=== PATIENT | female | born 1985 | race Hispanic/Latino ===

== ENCOUNTER 2018-08-16 11:45 | Emergency (ER) | payer MEDICAID ==
[2018-08-16 12:14] VITALS: BMI 23.4
[2018-08-16 12:20] VITALS: RESP 18; TEMP 98.5
[2018-08-16] MEDS ORDERED: Sodium Chloride 0.9% 1,000 ML IV ONE (13:09)
[2018-08-16 13:42] LABS: HCG,QUALITATIVE URINE NEGATIVE (NEGATIVE)
[2018-08-16 13:49] LABS: SQUAMOUS EPITHIAL 5 /hpf (0-5); URINE BACTERIA OCC (<OCC); URINE BILIRUBIN NEGATIVE (NEGATIVE); URINE BLOOD 3+ (NEGATIVE); URINE CLARITY Hazy (Clear); URINE COLOR Yellow (YELLOW); URINE GLUCOSE (UA) NORMAL (Normal); URINE LEUKOCYTE ESTERASE 1+ Leu/uL (Negative); URINE PROTEIN 2+ mg/dL (NEGATIVE); URINE UROBILINOGEN NORMAL mg/dL (0.2-1.0)
[2018-08-16] MEDS ORDERED: cefTRIAXone IV 1 gm in Dextros 50 ML IV ONE (13:57)
[2018-08-16] MEDS ORDERED: Sodium Chloride 0.9% 1,000 ML ONE (14:31)
--- NOTE | 2018-08-16 14:45 | US ---
HISTORY: RUQ abd pain and pelvic COMPARISON: None available. TECHNIQUE: Sonographic evaluation of the abdomen. FINDINGS: LIVER: Measures 16.1 cm in sagittal dimension. Echogenic liver may be seen in setting of hepatic parenchymal disease or fatty infiltration. 0.7 x 0.7 x 0.8 cm and 0.6 x 0.5 x 0.6 cm echogenic right hepatic lesions. The main portal vein appears patent with normal directional flow. No intrahepatic bile duct dilatation. GALLBLADDER: Cholelithiasis. No gallbladder wall thickening. Negative sonographic Virgen's sign as assessed by the sandwich board carrier. COMMON BILE DUCT: Measures 5 mm. PANCREAS: Not well visualized. RIGHT KIDNEY: Measures 10.4 x 4.1 x 4.4 cm. Mild hydronephrosis. 0.8 cm calculus. LEFT KIDNEY: Measures 10.4 x 5.4 x 5.3 cm. No obstructing calculus or hydronephrosis identified. SPLEEN: Measures approximately 7.4 cm. AORTA: Limited views appear unremarkable. IVC: Limited views appear unremarkable. OTHER FINDINGS: None. IMPRESSION: 0.8 cm right renal calculus and mild hydronephrosis. Echogenic liver may be seen in setting of hepatic parenchymal disease or fatty infiltration. Indeterminate 0.8 cm and 0.6 cm echogenic hepatic lesions in the right hepatic lobe. Recommend further evaluation with dedicated cross-sectional imaging if not previously characterized. Cholelithiasis.
[2018-08-16 14:50] LABS: BASO # 0.1 K/uL (0.0-0.2); BASO % 0.9 % (0.0-2.0); EOS # 0.1 K/uL (0.0-0.7); EOS % 0.6 % (0.0-4.0); HEMOGLOBIN 12.7 g/dL (11.0-16.0); LYMPH % 13.6 % (20.0-40.0); MEAN CELL VOLUME 95.2 fL (81.0-99.0); MEAN CORPUSCULAR HGB CONC 33.6 g/dL (33.0-37.0); MEAN PLATELET VOLUME 8.3 fL (7.2-11.7); MONO # 1.3 K/uL (0.0-0.8); NEUT % 75.9 % (50.0-75.0); RBC 3.98 Mil/uL (3.80-5.20); RED CELL DISTRIBUTION WIDTH 13.8 % (11.5-14.5); WHITE BLOOD COUNT 14.5 K/uL (4.8-10.8)
[2018-08-16 15:01] LABS: ALB/GLOB RATIO 1.4 (1.0-2.1); ALBUMIN 4.3 g/dL (3.5-5.0); ALT/SGPT 40 U/L (9-52); AST/SGOT 37 U/L (14-36); BLOOD UREA NITROGEN 10 mg/dL (7-17); CALCIUM 9.3 mg/dl (8.6-10.4); GFR NON-AFRICAN AMERICAN > 60; LIPASE 51 U/L (23-300)
--- NOTE | 2018-08-16 15:02 | US ---
Date of service: 08/16/2018 HISTORY: pelvic pain, abn menses COMPARISON: None available TECHNIQUE: Real-time transabdominal pelvic ultrasound was performed. In addition a transvaginal pelvic ultrasound was necessary to better depict pelvic anatomy. FINDINGS: UTERUS: Measures 8.8 x 4.4 x 5.4 cm. Anteverted. ENDOMETRIUM: Measures 9 mm in diameter. Several small echogenic foci possibly calcifications noted within the endometrium. CERVIX: No cervical abnormality identified. RIGHT OVARY: Measures 2.8 x 2.1 x 2.5 cm. Blood flow is demonstrated. LEFT OVARY: Measures 2.3 x 1.4 x 1.9 cm. Blood flow is demonstrated. FREE FLUID: Small pelvic free fluid noted. OTHER FINDINGS: None. IMPRESSION: Several tiny echogenic foci noted within the endometrium, possibly calcifications. Small pelvic free fluid, likely physiologic.
--- NOTE | 2018-08-16 15:42 | C.PDOC ---
Time Seen by Provider: 08/16/18 13:01 Chief Complaint (Nursing): Back Pain Past Medical History Vital Signs: Last Vital Signs Temp 98.5 F 08/16/18 14:55 Pulse 58 L 08/16/18 14:55 Resp 18 08/16/18 14:55 BP 130/81 08/16/18 14:55 Pulse Ox 100 08/16/18 14:55 - Medical History PMH: Asthma - Social History Hx Alcohol Use: No Hx Substance Use: No - Immunization History Hx Tetanus Toxoid Vaccination: No Hx Influenza Vaccination: No Hx Pneumococcal Vaccination: No ED Course And Treatment - Laboratory Results Result Diagrams: 08/16/18 14:45 08/16/18 14:45 O2 Sat by Pulse Oximetry: 100 Medical Decision Making Medical Decision Making: Impression: flank and right sided abdominal pain Plan: * CBC * CMP * Abd US * UA Progress: Labs reviewed with mild leukocytosis and UA has +nitrates, leukocytes WBCs. Patient treated with IV Rocephin. On re-evaluation, the patient has no fever and reports feeling better. She has no CVA tenderness or in distress. Explain results to patient and plan for discharge with Rx and to follow up with PMD. She expressed understanding Disposition Counseled Patient/Family Regarding: Studies Performed, Diagnosis, Need For Followup, Rx Given - Disposition Referrals: Shaik Jones MD [Staff Provider] - Disposition: HOME/ ROUTINE Disposition Time: 15:42 Condition: IMPROVED Additional Instructions: Your labs show you have urinary bladder infection. Take antibiotic twice daily and be sure to finish taking all of antibiotic. Drink plenty of fluids. Follow up with your primary medical doctor or clinic in 2-5 days for further evaluation. Prescriptions: Cephalexin [cephalexin] 500 mg PO Q12 #14 cap Instructions: Acute Cystitis (DC) Forms: [employer] (Sri Lankan) - POA Present On Arrival: None - Clinical Impression Clinical Impression: Cystitis
--- NOTE | 2018-08-16 15:47 | C.PDOC ---
History Of Present Illness 32 year old female presents to the ED for evaluation of right-sided flank and abdominal pain which began this morning. Patient also reports having episodes of vomiting. She has not taken any medicine for pain. Patient denies fever, chills, dysuria, hematuria, vaginal bleeding/discharge. Patient states she got her menstrual period twice last month, with last menstrual period on 08/02. She denies control use. Time Seen by Provider: 08/16/18 13:01 Chief Complaint (Nursing): Back Pain History Per: Patient History/Exam Limitations: no limitations Onset/Duration Of Symptoms: Hrs Current Symptoms Are (Timing): Still Present Radiation Of Pain To:: None Quality Of Discomfort: "Pain" Associated Symptoms: Vomiting, Back Pain. denies: Fever, Chills Additional History Per: Patient Abnormal Vaginal Bleeding: No Last Menstral Period: 08/02/18 Past Medical History Reviewed: Historical Data, Nursing Documentation, Vital Signs Vital Signs: Last Vital Signs Temp 98.5 F 08/16/18 14:55 Pulse 58 L 08/16/18 14:55 Resp 18 08/16/18 14:55 BP 130/81 08/16/18 14:55 Pulse Ox 100 08/16/18 14:55 - Medical History PMH: Asthma Surgical History: No Surg Hx Family History: States: Unknown Family Hx - Social History Hx Alcohol Use: No Hx Substance Use: No - Immunization History Hx Tetanus Toxoid Vaccination: No Hx Influenza Vaccination: No Hx Pneumococcal Vaccination: No Review Of Systems Constitutional: Negative for: Fever, Chills Gastrointestinal: Positive for: Vomiting, Abdominal Pain Genitourinary: Negative for: Dysuria, Hematuria, Vaginal Discharge, Vaginal Bleeding Musculoskeletal: Positive for: Back Pain Physical Exam - Physical Exam Appears: Non-toxic, No Acute Distress Skin: Normal Color, Warm, Dry Head: Atraumatic, Normacephalic, Other (left facial deformity (baseline)) Eye(s): bilateral: Normal Inspection, EOMI Oral Mucosa: Moist Neck: Supple Chest: Symmetrical, No Deformity, No Tenderness Cardiovascular: Rhythm Regular, No Murmur Respiratory: Normal Breath Sounds, No Rales, No Rhonchi, No Wheezing Gastrointestinal/Abdominal: Soft, No Tenderness, No Guarding, No Rebound Back: No CVA Tenderness Extremity: Bilateral: Atraumatic, Normal Color And Temperature, Normal ROM Neurological/Psych: Oriented x3, Normal Speech Gait: Steady ED Course And Treatment - Laboratory Results Result Diagrams: 08/16/18 14:45 08/16/18 14:45 Lab Interpretation: Abnormal O2 Sat by Pulse Oximetry: 100 (on RA) Pulse Ox Interpretation: Normal - CT Scan/US abdomen Other Rad Studies (CT/US): Read By Radiologist, Radiology Report Reviewed CT/US Interpretation: Accession No. : [id number]. Patient Name / ID : CHIDI ROCHA / [id number]. Exam Date : 08/16/2018 13:29:24 ( Approved ). Study Comment : Sex / Age : F / 32Y. Creator : Macey Mi MD. Dictator : Macey Mi MD. Business Operations Manager : Ice Skater : Beto Mi MD. Approver2 : Report Date : 08/16/2018 14:41:43. My Comment : . HISTORY: RUQ abd pain and pelvic. COMPARISON: None available. TECHNIQUE: Sonographic evaluation of the abdomen. FINDINGS: LIVER: Measures 16.1 cm in sagittal dimension. Echogenic liver may be seen in setting of hepatic parenchymal disease or fatty infiltration. 0.7 x 0.7 x 0.8 cm and 0.6 x 0.5 x 0.6 cm echogenic right hepatic lesions. The main portal vein appears patent with normal directional flow. No intrahepatic bile duct dilatation. GALLBLADDER: Cholelithiasis. No gallbladder wall thickening. Negative sonographic Virgen's sign as assessed by the fine unhairer. COMMON BILE DUCT: Measures 5 mm. PANCREAS: Not well visualized. RIGHT KIDNEY: Measures 10.4 x 4.1 x 4.4 cm. Mild hydronephrosis. 0.8 cm calculus. LEFT KIDNEY: Measures 10.4 x 5.4 x 5.3 cm. No obstructing calculus or hydronephrosis identified. SPLEEN: Measures approximately 7.4 cm. AORTA: Limited views appear unremarkable. IVC: Limited views appear unremarkable. OTHER FINDINGS: None. IMPRESSION: 0.8 cm right renal calculus and mild hydronephrosis. Echogenic liver may be seen in setting of hepatic parenchymal disease or fatty infiltration. Indeterminate 0.8 cm and 0.6 cm echogenic hepatic lesions in the right hepatic lobe. Recommend further evaluation with dedicated cross-sectional imaging if not previously characterized. Cholelithiasis. Pelvis Other Rad Studies (CT/US): Read By Radiologist, Radiology Report Reviewed CT/US Interpretation: Accession No. : [id number]. Patient Name / ID : CHIDI ROCHA / [id number]. Exam Date : 08/16/2018 13:46:19 ( Approved ). Study Comment : Sex / Age : F / 32Y. Creator : Macey Mi MD. Dictator : Macey Mi MD. Business Operations Manager : Ice Skater : Macey Mi MD. Approver2 : Report Date : 08/16/2018 14:58:58. My Comment : . Date of service: 08/16/2018. HISTORY: pelvic pain, abn menses. COMPARISON: None available. TECHNIQUE: Real-time transabdominal pelvic ultrasound was performed. In addition a transvaginal pelvic ultrasound was necessary to better depict pelvic anatomy. FINDINGS: UTERUS: Measures 8.8 x 4.4 x 5.4 cm. Anteverted. ENDOMETRIUM: Measures 9 mm in diameter. Several small echogenic foci possibly calcifications noted within the endometrium. CERVIX: No cervical abnormality identified. RIGHT OVARY: Measures 2.8 x 2.1 x 2.5 cm. Blood flow is demonstrated. LEFT OVARY: Measures 2.3 x 1.4 x 1.9 cm. Blood flow is demonstrated. FREE FLUID: Small pelvic free fluid noted. OTHER FINDINGS: None. IMPRESSION: Several tiny echogenic foci noted within the endometrium, possibly calcifications. Small pelvic free fluid, likely physiologic. Medical Decision Making Medical Decision Making: Impression: flank and right sided abdominal pain Plan: CBC CMP Abd US UA Progress: Labs reviewed with mild leukocytosis and UA has +nitrates, leukocytes WBCs. Patient treated with IV Rocephin. US of abdomen shows right renal calculus and cholelithiasis with no evidence of cholecystitis. Pelvic US WNL. On re-evaluation, the patient has no fever and reports feeling better. She has no CVA tenderness or in distress. Explain results to patient and plan for discharge with Rx and to follow up with PMD. She expressed understanding Disposition Counseled Patient/Family Regarding: Studies Performed, Diagnosis, Need For Followup, Rx Given - Disposition Referrals: Shaik Jones MD [Staff Provider] - Disposition: HOME/ ROUTINE Disposition Time: 15:42 Condition: IMPROVED Additional Instructions: Your labs show you have urinary bladder infection. Take antibiotic twice daily and be sure to finish taking all of antibiotic. Drink plenty of fluids. Follow up with your primary medical doctor or clinic in 2-5 days for further evaluation. Prescriptions: Cephalexin [cephalexin] 500 mg PO Q12 #14 cap Instructions: Acute Cystitis (DC) Forms: [employer] (Ukrainian) - POA Present On Arrival: None - Clinical Impression Clinical Impression: Pyelonephritis, Cholelithiasis - PA / FAMILY LAW LEGAL ASSISTANT / Resident Statement MD/DO has reviewed & agrees with the documentation as recorded. - Scribe Statement The provider has reviewed the documentation as recorded by the Scribe (Dawn Mac) All medical record entries made by the Scribe were at my direction and personally dictated by me. I have reviewed the chart and agree that the record accurately reflects my personal performance of the history, physical exam, medical decision making, and the department course for this patient. I have also personally directed, reviewed, and agree with the discharge instructions and disposition.
[2018-08-16 16:14] VITALS: BP 136/86; PULSE 68
[2018-08-16 17:09] VITALS: O2SAT 100
== END 2018-08-16 16:14 | disposition home or self-care (01) ==
LOC: C.ER 11:45
DX: N12 Tubulo-interstitial nephritis, not specified as acute or chronic (principal); K80.20 Calculus of gallbladder without cholecystitis without obstruction
CPT/HCPCS: 76700; 76830; 76856; 80053; 81001; 83690; 84703; 85025; 87086; 96361; 96365; 96375; 99285; J0696; J2405; J7030

== ENCOUNTER 2018-09-09 22:55 | Emergency (ER) | payer MEDICAID ==
[2018-09-09 22:55] VITALS: BMI 23.4
[2018-09-10 00:14] VITALS: PULSE 108
[2018-09-10] MEDS ORDERED: Albuterol-Ipratrop 3 mg / 0.5 (3 ml) UD ONE ×2 (00:15→01:33)
--- NOTE | 2018-09-10 00:48 | C.PDOC ---
History Of Present Illness 32 year old female presents to the ED c/o SOB and wheezing. Patient states her inhaler at home is not working. Patient still smokes approximately a pack a day. Patient denies fever, chills, CP, palpitations, headache, dizziness, weakness, numbness. Time Seen by Provider: 09/10/18 00:47 Chief Complaint (Nursing): Shortness Of Breath History Per: Patient History/Exam Limitations: no limitations Onset/Duration Of Symptoms: Days Current Symptoms Are (Timing): Still Present Initiating Event: Upper Respiratory Illness Quality: "Pain" Current Respiratory Medications: See Home Med List Recent travel outside of the [place]: No Additional History Per: Patient Past Medical History Reviewed: Historical Data, Nursing Documentation, Vital Signs Vital Signs: Last Vital Signs Temp 98.4 F 09/10/18 00:09 Pulse 108 H 09/10/18 00:09 Resp 16 09/10/18 00:09 BP 134/87 09/10/18 00:09 Pulse Ox 95 09/10/18 00:09 - Medical History PMH: Asthma Surgical History: No Surg Hx Family History: States: Unknown Family Hx - Social History Hx Alcohol Use: Yes Hx Substance Use: No - Immunization History Hx Tetanus Toxoid Vaccination: No Hx Influenza Vaccination: No Hx Pneumococcal Vaccination: No Review Of Systems Constitutional: Negative for: Fever, Chills Cardiovascular: Negative for: Chest Pain, Palpitations Respiratory: Positive for: Shortness of Breath, Wheezing Gastrointestinal: Negative for: Nausea, Vomiting, Abdominal Pain Skin: Negative for: Rash Neurological: Negative for: Weakness, Numbness, Headache, Dizziness Physical Exam - Physical Exam Appears: Non-toxic, No Acute Distress Skin: Warm, Dry Head: Normacephalic Eye(s): bilateral: Normal Inspection Oral Mucosa: Moist Neck: Supple Chest: Symmetrical Cardiovascular: Rhythm Regular Respiratory: No Rales, No Rhonchi, Wheezing (diffuse) Gastrointestinal/Abdominal: Soft, No Tenderness, No Guarding, No Rebound Extremity: Bilateral: Atraumatic, Normal Color And Temperature, Normal ROM Neurological/Psych: Oriented x3, Normal Speech, Normal Cognition Gait: Steady ED Course And Treatment - Laboratory Results Result Diagrams: 09/10/18 01:33 09/10/18 01:33 O2 Sat by Pulse Oximetry: 95 (ON RA) Pulse Ox Interpretation: Normal - Radiology CXR: Interpreted by Me, Viewed By Me CXR Interpretation: No: Infiltrates, Fracture Progress Note: Plan: - Labs. - CXR. - Duoneb. - Solumedrol 125 mg IVP. - IV fluids. - UA Reevaluation Time: 02:15 Reassessment Condition: Improved Disposition Counseled Patient/Family Regarding: Studies Performed, Diagnosis, Need For Followup, Rx Given, Smoking Cessation - Disposition Referrals: Valeria Lim APN [Advanced Practice Nurse] - Disposition: HOME/ ROUTINE Disposition Time: 00:48 Condition: FAIR Additional Instructions: Please return if symptoms recur Prescriptions: Azithromycin [Zithromax Tri-Nick] 500 mg PO DAILY #3 tab Prednisone [Deltasone] 20 mg PO DAILY #5 tablet Instructions: Asthma, Adult (DC) Forms: [employer] (Lebanese) - Clinical Impression Clinical Impression: Asthma exacerbation - Scribe Statement The provider has reviewed the documentation as recorded by the Scribe Michael Brewer All medical record entries made by the Scribe were at my direction and personally dictated by me. I have reviewed the chart and agree that the record accurately reflects my personal performance of the history, physical exam, medical decision making, and the department course for this patient. I have also personally directed, reviewed, and agree with the discharge instructions and disposition.
[2018-09-10] MEDS ORDERED: Sodium Chloride 0.9% 1,000 ML IV ONE (00:54)
[2018-09-10] MEDS: Albuterol-Ipratrop 3 mg / 0.5 (3 ml) UD IH SCH ×3 (01:29→01:59)
[2018-09-10] MEDS ORDERED: Sodium Chloride 0.9% 1,000 ML ONE (01:33)
[2018-09-10 01:37] LABS: BASO # 0.1 K/uL (0.0-0.2); LYMPH # 2.8 K/uL (1.0-4.3); LYMPH % 25.3 % (20.0-40.0); MEAN CELL VOLUME 94.5 fL (81.0-99.0); MEAN CORPUSCULAR HEMOGLOBIN 31.7 pg (27.0-31.0); MEAN CORPUSCULAR HGB CONC 33.6 g/dL (33.0-37.0)
[2018-09-10 01:40] LABS: BASO % 0.6 % (0.0-2.0); EOS # 0.2 K/uL (0.0-0.7); EOS % 1.7 % (0.0-4.0); HEMOGLOBIN 13.6 g/dL (11.0-16.0); MEAN PLATELET VOLUME 8.7 fL (7.2-11.7); MONO # 1.2 K/uL (0.0-0.8); NEUT # 6.8 K/uL (1.8-7.0); NEUT % 61.4 % (50.0-75.0); RBC 4.29 Mil/uL (3.80-5.20); RED CELL DISTRIBUTION WIDTH 13.6 % (11.5-14.5); WHITE BLOOD COUNT 11.1 K/uL (4.8-10.8)
[2018-09-10 01:57] LABS: ALB/GLOB RATIO 1.4 (1.0-2.1); ALBUMIN 4.4 g/dL (3.5-5.0); ALT/SGPT 15 U/L (9-52); AST/SGOT 32 U/L (14-36); BLOOD UREA NITROGEN 10 mg/dL (7-17); CALCIUM 8.8 mg/dl (8.6-10.4); GFR NON-AFRICAN AMERICAN > 60
[2018-09-10 02:04] LABS: HCG,QUALITATIVE URINE NEGATIVE (NEGATIVE); SQUAMOUS EPITHIAL 7 /hpf (0-5); URINE BACTERIA RARE (<OCC); URINE BILIRUBIN NEGATIVE (NEGATIVE); URINE BLOOD NEGATIVE (NEGATIVE); URINE CLARITY Clear (Clear); URINE COLOR Yellow (YELLOW); URINE GLUCOSE (UA) NORMAL (Normal); URINE LEUKOCYTE ESTERASE NEG Leu/uL (Negative); URINE PROTEIN NEGATIVE (NEGATIVE)
[2018-09-10 02:20] VITALS: BP 126/78; RESP 16; TEMP 98.7
[2018-09-10 02:32] VITALS: O2SAT 96
--- NOTE | 2018-09-10 08:46 | RAD ---
HISTORY: SOB COMPARISON: No prior. TECHNIQUE: Chest, one view. FINDINGS: LUNGS: No focal consolidation. Please note that chest x-ray has limited sensitivity for the detection of pulmonary masses. PLEURA: No significant pleural effusion identified. No definite pneumothorax . CARDIOVASCULAR: The cardiomediastinal silhouette appears within normal limits of size. No significant atherosclerotic calcification present. OSSEOUS STRUCTURES: No acute osseous abnormality identified. VISUALIZED UPPER ABDOMEN: Unremarkable. OTHER FINDINGS: None. IMPRESSION: No focal consolidation.
== END 2018-09-10 02:44 | disposition home or self-care (01) ==
LOC: C.ER 22:55
DX: J45.901 Unspecified asthma with (acute) exacerbation (principal); F17.210 Nicotine dependence, cigarettes, uncomplicated
CPT/HCPCS: 71045; 80053; 81001; 84703; 85025; 96361; 96374; 99285; J2930; J7030

== ENCOUNTER 2018-09-21 19:43 | Emergency (ER) | payer MEDICAID ==
[2018-09-21 19:43] VITALS: BMI 23.4
[2018-09-21] MEDS ORDERED: Sodium Chloride 0.9% 1,000 ML IV ONE (20:15)
--- NOTE | 2018-09-21 20:22 | C.PDOC ---
History Of Present Illness 32 y/o female comes in to ED complaining of a mild cough for the past several days. She was seen here 09/09 and treated with Zithromax and Prednisone for exacerbation of asthma. Patient states she woke up this morning with a headache, congestion, generalized body aches, and fever over 101. Patient states she has a small umbilical hernia for the past 2 days that has increased in size. Otherwise she denies nausea, vomiting, back pain, or urinary symptoms. Contrary to triage note, patient states she has not been sleeping on the streets. Time Seen by Provider: 09/21/18 20:08 Chief Complaint (Nursing): Flu-like Symptoms History Per: Patient History/Exam Limitations: no limitations Onset/Duration Of Symptoms: Days Current Symptoms Are (Timing): Still Present Past Medical History Reviewed: Historical Data, Nursing Documentation, Vital Signs Vital Signs: Last Vital Signs Temp 101.4 F H 09/21/18 20:02 Pulse 104 H 09/21/18 20:02 Resp 20 09/21/18 20:02 BP 124/81 09/21/18 20:02 Pulse Ox 97 09/21/18 20:02 - Medical History PMH: Asthma Family History: States: No Known Family Hx - Social History Hx Alcohol Use: Yes Hx Substance Use: No - Immunization History Hx Tetanus Toxoid Vaccination: No Hx Influenza Vaccination: No Hx Pneumococcal Vaccination: No Review Of Systems Constitutional: Positive for: Fever, Weakness. Negative for: Chills ENT: Positive for: Nose Congestion Cardiovascular: Negative for: Chest Pain Respiratory: Positive for: Cough. Negative for: Shortness of Breath Gastrointestinal: Negative for: Nausea, Vomiting, Abdominal Pain, Diarrhea Genitourinary: Negative for: Dysuria Musculoskeletal: Negative for: Back Pain Neurological: Positive for: Headache Physical Exam - Physical Exam Appears: Non-toxic, No Acute Distress Skin: Warm, Dry Head: Atraumatic, Normacephalic Eye(s): bilateral: Normal Inspection Nose: Other (Congested) Oral Mucosa: Moist Throat: Normal, No Erythema, No Exudate Neck: Supple Cardiovascular: Rhythm Regular, No Murmur Respiratory: Normal Breath Sounds, No Rales, No Rhonchi, No Wheezing Gastrointestinal/Abdominal: Soft, No Guarding, Other (Umbilical hernia easily reducible) Back: No CVA Tenderness Extremity: Bilateral: Atraumatic, Normal ROM Neurological/Psych: Oriented x3, Normal Speech ED Course And Treatment - Laboratory Results Result Diagrams: 09/21/18 20:33 09/21/18 20:33 Lab Interpretation: Abnormal (WBC 18.9 with left shift) O2 Sat by Pulse Oximetry: 97 (RA) Pulse Ox Interpretation: Normal - Radiology CXR: Interpreted by Me CXR Interpretation: Yes: No Acute Disease Reevaluation Time: 21:12 Reassessment Condition: Improved (After IV fluids and Tylenol.) Medical Decision Making Medical Decision Making: Plan: --Bloodwork --Chest XR --IV fluids 1L --Tylenol PO --Flu swab --UA Disposition Counseled Patient/Family Regarding: Studies Performed, Diagnosis, Need For Followup, Rx Given - Disposition Referrals: Shaik Jones MD [Staff Provider] - Disposition: HOME/ ROUTINE Disposition Time: 21:13 Condition: IMPROVED Additional Instructions: Encourage plenty of fluids and rest. Take Tylenol for fever as needed. Prescriptions: Oseltamivir Phosphate [Tamiflu] 75 mg PO BID #9 capsule Instructions: Viral Upper Respiratory Infection, Adult (DC) Forms: [employer] (Kyrgyz) - Clinical Impression Clinical Impression: Influenza-like illness - Scribe Statement The provider has reviewed the documentation as recorded by the Scribe Monse Hernandez Provider Attestation: All medical record entries made by the Scribe were at my direction and personally dictated by me. I have reviewed the chart and agree that the record accurately reflects my personal performance of the history, physical exam, medical decision making, and the department course for this patient. I have also personally directed, reviewed, and agree with the discharge instructions and disposition.
[2018-09-21 20:39] LABS: BASO # 0.1 K/uL (0.0-0.2); BASO % 0.5 % (0.0-2.0); EOS # 0.1 K/uL (0.0-0.7); EOS % 0.4 % (0.0-4.0); LYMPH # 2.2 K/uL (1.0-4.3); LYMPH % 11.7 % (20.0-40.0); MEAN CELL VOLUME 93.2 fL (81.0-99.0); MEAN CORPUSCULAR HGB CONC 33.3 g/dL (33.0-37.0); MEAN PLATELET VOLUME 7.8 fL (7.2-11.7); MONO # 2.3 K/uL (0.0-0.8); NEUT # 14.2 K/uL (1.8-7.0); NEUT % 75.4 % (50.0-75.0); NRBC % 0.1 % (0.0-2.0); RBC 4.52 Mil/uL (3.80-5.20); RED CELL DISTRIBUTION WIDTH 13.7 % (11.5-14.5)
[2018-09-21 20:45] LABS: SQUAMOUS EPITHIAL < 1 /hpf (0-5); URINE BACTERIA RARE (<OCC); URINE BILIRUBIN NEGATIVE (NEGATIVE); URINE BLOOD 1+ (NEGATIVE); URINE CLARITY Clear (Clear); URINE COLOR Straw (YELLOW); URINE GLUCOSE (UA) NORMAL (Normal); URINE LEUKOCYTE ESTERASE NEG Leu/uL (Negative); URINE PROTEIN NEGATIVE (NEGATIVE)
[2018-09-21 20:46] LABS: WHITE BLOOD COUNT 18.9 K/uL (4.8-10.8)
[2018-09-21 20:47] LABS: HCG,QUALITATIVE URINE NEGATIVE (NEGATIVE)
[2018-09-21 20:58] LABS: ALB/GLOB RATIO 1.3 (1.0-2.1); ALBUMIN 4.1 g/dL (3.5-5.0); ALT/SGPT < 6 U/L (9-52); AST/SGOT 17 U/L (14-36); BLOOD UREA NITROGEN 11 mg/dL (7-17); CALCIUM 8.7 mg/dl (8.6-10.4); GFR NON-AFRICAN AMERICAN > 60
[2018-09-21 21:33] VITALS: BP 121/81; PULSE 89; RESP 19; TEMP 98.8; O2SAT 98
--- NOTE | 2018-09-22 09:14 | RAD ---
Date of service: 09/21/2018 HISTORY: SOB COMPARISON: 09/10/2018 TECHNIQUE: Chest PA and lateral FINDINGS: LUNGS: No active pulmonary disease. PLEURA: No significant pleural effusion identified. No pneumothorax apparent. CARDIOVASCULAR: No aortic atherosclerotic calcification present. Normal cardiac size. No pulmonary vascular congestion. OSSEOUS STRUCTURES: No significant abnormalities. VISUALIZED UPPER ABDOMEN: Normal. OTHER FINDINGS: None. IMPRESSION: No active disease.
== END 2018-09-21 21:34 | disposition home or self-care (01) ==
LOC: C.ER 19:43
DX: J11.1 Influenza due to unidentified influenza virus with other respiratory manifestations (principal)
CPT/HCPCS: 71046; 80053; 81001; 84703; 85025; 87804; 96360; 99285; J7030

== ENCOUNTER 2018-12-10 22:00 | Emergency (ER) | payer MEDICAID ==
[2018-12-10 22:00] VITALS: BMI 23.4
[2018-12-10] MEDS ORDERED: Albuterol-Ipratrop 3 mg / 0.5 (3 ml) UD INH STA ×2 (22:49)
[2018-12-10] MEDS ORDERED: Albuterol-Ipratrop 3 mg / 0.5 (3 ml) UD ONE (23:02)
[2018-12-11 00:02] VITALS: BP 137/86; PULSE 108; RESP 16; TEMP 100.9; O2SAT 91
--- NOTE | 2018-12-11 04:03 | C.PDOC ---
History Of Present Illness 33-year-old female with a history of asthma presents to the emergency department complaining of dry cough and body aches over the past couple of days. Patient reports positive subjective fever, mild shortness of breath, but denies chest pain. Patient states that her entire family at home is sick with similar symptoms. Patient reports using her albuterol pump with some relief. Time Seen by Provider: 12/10/18 22:20 Chief Complaint (Nursing): Cough, Cold, Congestion History Per: Patient History/Exam Limitations: no limitations Onset/Duration Of Symptoms: Days Current Symptoms Are (Timing): Still Present Location Of Pain: Diffuse Myalgias Associated Symptoms: Fever, Cough, Myalgias, Other (mild SOB) Past Medical History Reviewed: Historical Data, Nursing Documentation, Vital Signs Vital Signs: Last Vital Signs Temp 100.9 F H 12/11/18 00:02 Pulse 108 H 12/11/18 00:02 Resp 16 12/11/18 00:02 BP 137/86 12/11/18 00:02 Pulse Ox 91 L 12/11/18 00:02 - Medical History PMH: Asthma Surgical History: No Surg Hx Family History: States: No Known Family Hx - Social History Hx Alcohol Use: Yes Hx Substance Use: No - Immunization History Hx Tetanus Toxoid Vaccination: No Hx Influenza Vaccination: No Hx Pneumococcal Vaccination: No Review Of Systems Except As Marked, All Systems Reviewed And Found Negative. Constitutional: Positive for: Fever. Negative for: Chills, Weakness Cardiovascular: Negative for: Chest Pain Respiratory: Positive for: Cough, Shortness of Breath Gastrointestinal: Negative for: Nausea, Vomiting, Abdominal Pain, Diarrhea Musculoskeletal: Positive for: Other (diffuse myalgias) Physical Exam - Physical Exam Appears: Non-toxic, No Acute Distress Skin: Normal Color, Warm, Dry Head: Atraumatic, Normacephalic Eye(s): bilateral: Normal Inspection, PERRL, EOMI Nose: Normal Oral Mucosa: Moist Neck: Normal, Supple Chest: Symmetrical, No Tenderness Cardiovascular: Rhythm Regular, No Murmur Respiratory: No Rales, No Rhonchi, Wheezing (b/l expiratory wheeze with good air entry) Gastrointestinal/Abdominal: Soft, No Tenderness Extremity: Normal ROM Neurological/Psych: Oriented x3, Normal Speech, Normal Cognition ED Course And Treatment Interpretation Of ECG: Sinus tachycardia at 106bpm. O2 Sat by Pulse Oximetry: 91 (RA) Pulse Ox Interpretation: Abnormal - Radiology CXR: Interpreted by Me, Viewed By Me CXR Interpretation: Yes: No Acute Disease. No: Infiltrates Medical Decision Making Medical Decision Making: Plan: CXR Albuterol 3ml INH Tylenol 650mh PO Prednisone 60mg PO Influenza Serology Patient reports feeling better upon re-evaluation. Patient is clear for discharge, instructed to f/u with PMD. Disposition - Disposition Referrals: [facility] Carlito Santacruz, [Non-Staff] - Disposition: HOME/ ROUTINE Disposition Time: 00:50 Condition: IMPROVED Additional Instructions: AJ MURILLO, thank you for letting us take care of you today. The emergency medical care you received today was directed at your acute symptoms. If you were prescribed any medication, please fill it and take as directed. It may take several days for your symptoms to resolve. Return to the Emergency Department if your symptoms worsen, do not improve, or if you have any other problems. Please contact your doctor or call one of the physicians/clinics you have been referred to that are listed on the Patient Visit Information form that is included in your discharge packet. Bring any paperwork you were given at discharge with you along with any medications you are taking to your follow up visit. Our treatment cannot replace ongoing medical care by a primary care provider outside of the emergency department. Thank you for allowing the [email or web address] team to be part of your care today. Drink plenty of fluids to maintain hydration. Take motrin or tylenol or any fever. Follow up with your primary care doctor in 2-3 days for re-evaluation and further management. Prescriptions: Ibuprofen [Motrin] 600 mg PO Q6 PRN #20 tab PRN Reason: Pain, Moderate (4-7) predniSONE [Prednisone] 40 mg PO DAILY #10 tab Instructions: Asthma, Adult (DC), Upper Respiratory Infection (ED) Forms: [employer] ([employer]) - Clinical Impression Clinical Impression: Upper respiratory infection, Asthma exacerbation - Scribe Statement The provider has reviewed the documentation as recorded by the Scribe (Nathaniel Monreal) Provider Attestation: All medical record entries made by the Scribe were at my direction and personally dictated by me. I have reviewed the chart and agree that the record accurately reflects my personal performance of the history, physical exam, medical decision making, and the department course for this patient. I have also personally directed, reviewed, and agree with the discharge instructions and disposition.
--- NOTE | 2018-12-11 10:46 | RAD ---
Date of service: 12/10/2018 HISTORY: cough r/o infiltrate COMPARISON: Comparison is made with 09/21/2018 TECHNIQUE: 1 view obtained. FINDINGS: LUNGS: No active pulmonary disease. PLEURA: No significant pleural effusion identified, no pneumothorax apparent. CARDIOVASCULAR: No aortic atherosclerotic calcification present. Normal cardiac size. No pulmonary vascular congestion. OSSEOUS STRUCTURES: No significant abnormalities. VISUALIZED UPPER ABDOMEN: Normal. OTHER FINDINGS: None. IMPRESSION: No active disease.
== END 2018-12-11 01:12 | disposition home or self-care (01) ==
LOC: C.ER 22:00
DX: J06.9 Acute upper respiratory infection, unspecified (principal); J45.901 Unspecified asthma with (acute) exacerbation